=== PATIENT | female | born 1995 | race Caucasian/White ===

== ENCOUNTER 2025-06-01 22:01 | Emergency (ER) | payer OTHER ==
[~2025-06-01] VITALS: Ht 154.9 cm; Wt 74.3 kg
[2025-06-02 00:23] VITALS: PULSE 75; RESP 15; O2SAT 98
[2025-06-02 00:25] VITALS: BP 113/75; PULSE 75; RESP 15; TEMP 98.3; O2SAT 99
--- NOTE | 2025-06-02 00:28 | ED.PDOC ---
History of Present Illness(SKN HPI Comments PT CAME TO THE ER WITH CC OF WOUND CHECK, PT HAD BIOPSY DONE ON HER VULVA TODAY AT 1530, PT STATED THEY HAD A HARD TIME MAKING THE BLEEDING STOP, AFTER THEY GOT BLEEDING STOPPED PT WAS SENT HOME. PT STATED SHE WENT TO THE BATHROOM AT 2145 AND WHEN SHE PUSHED ON HER ABDOMIN A LARGE AMOUNT OF BLOOD CAME OUT OF THE WOUND. PT IS A&OX4, AMBULATORY, RR EVEN AND REGULAR NO DISTRESS NOTED, PT DENIES ALL OTHER SYMTPOMS AT THIS TIME Chief Complaint: Wound Check Time Seen by MD: 22:14 History of Present Illness: Nurses Notes, Medications, Allergies Information Source: Patient Mode of Arrival: Ambulatory All Other Systems: Reviewed and Negative (see hpi) Physical Exam General Appearance: No Apparent Distress, Normal HEENT: Pharynx Normal Neck: Full Range of Motion, Non-Tender Respiratory: Lungs Clear, No Respiratory Distress, Normal Breath Sounds Cardiovascular: No Edema, No JVD, No Murmur, No Gallop, Normal Peripheral Pulses, Regular Rate/Rhythm Breast Exam: Deferred Gastrointestinal: Diffuse (Tenderness), No Organomegaly, No Pulsatile Mass, Normal Bowel Sounds, Soft Genitalia: Deferred Pelvic: Other (Right labia scabbed over surgical incision biopsy no noted bleeding or drainage) Rectal: Deferred Extremities: Normal range of motion, No pedal edema Musculoskeletal : Apperance: Normal Neurologic: Alert, No Motor Deficits, Normal Affect, Normal Mood, No Sensory Deficits Cerebellar Function: Normal Reflexes: NOT DONE Skin: Dry, Normal Color, Warm Lymphatic: No Adenopathy Was a procedure done? Was a procedure done?: No X-Ray, Labs, Meds, VS Vital Signs Date Time Temp Pulse Resp B/P (MAP) Pulse Ox O2 Delivery O2 Flow Rate FiO2 06/02/25 00:25 98.3 75 15 113/75 (88) 99 98.3 06/02/25 00:23 75 15 98 Room Air* 0 21 06/01/25 22:04 98.0 89 16 121/97 97 98.0 X-Ray, Labs, Meds, VS Comment CT abdomen and pelvis shows no acute etiology. Labia surgical biopsy area without any bleeding or drainage. Advised patient to follow up with her OBGYN for pathology results on Thursday. Advised to follow up with her PCP two days. ER return precautions given patient indicates understanding agrees with discharge plan of care Images Reviewed?: Images reviewed and evaluated by me Time of 1ST Reevaluation: 22:14 Reevaluation 1ST: Unchanged Time of 2ND Reevaluation: 01:50 Reevaluation 2ND: Improved Patient Education/Counseling: Diagnosis, Treatment, Need For Follow Up Family Education/Counseling: No Family Present SEPSIS Sepsis Screen Date sepsis recognized/suspect: Jun 01, 2025 Time Sepsis recognized/suspect: 2209 Recent Procedure: No On Antibiotic Therapy: No Respiratory Rate >20: No Heart Rate >90: No Temp<36 C (96.8 F) or >38.3 C: No SBP <90 or MAP <65 mmHG: No New Acute Mental Status Change: No Is the patient on CPAP, BIPAP,: No Physician Orders Ct Ab Pel Wo Con-No Oral Or Iv (06/02/25 00:21) Vital Signs Date Time Temp Pulse Resp B/P (MAP) Pulse Ox O2 Delivery O2 Flow Rate FiO2 06/02/25 00:25 98.3 75 15 113/75 (88) 99 98.3 06/02/25 00:23 75 15 98 Room Air* 0 21 06/01/25 22:04 98.0 89 16 121/97 97 98.0 Departure 1 Departure Time of Disposition: 01:50 Impression: Primary Impression: Labial abrasion Qualified Codes: S30.814A - Abrasion of vagina and vulva, initial encounter Additional Impression: Abdominal pain Qualified Codes: R10.84 - Generalized abdominal pain Disposition: 01 HOME / SELF CARE / HOMELESS Condition: Stable Discharged With: Self Critical Care Note Critical Care Time?: No Stability Stability form required: COLT Verma Jun 02, 2025 00:28
--- NOTE | 2025-06-02 01:41 | DVH ---
Exam: CT CT AB PEL WO CON-NO ORAL OR IV History: MID ABD PAIN AND BULGING Comparison Study: None TECHNIQUE: Multidetector CT of the abdomen and pelvis was performed from lung bases to pubic symphysis. Imaging was performed without IV contrast. Axial, coronal, and sagittal multiplanar reformats were obtained from the axial data set by the technologist. RADIATION DOSE: CTDI vol 16.1 mGy. DLP 889.1 mGy.cm Findings: Limited evaluation of the solid organs in the absence of IV contrast. Lungs: The lung bases are clear. Liver: Unremarkable. Spleen: Unremarkable. Pancreas: Unremarkable. Gallbladder: Contracted in appearance. Adrenals: Unremarkable Kidneys: Unremarkable. Pelvic Viscera: 2.3 cm right adnexal cyst. Vasculature: Unremarkable. Retroperitoneum: Unremarkable. Bowel: No bowel obstruction. The appendix is normal. Musculoskeletal: Unremarkable. Soft tissues: Unremarkable Impression: 1. No acute abdominopelvic abnormality.
== END 2025-06-02 02:14 | disposition home or self-care (01) ==
LOC: ER 22:01
DX: S30.814A Abrasion of vagina and vulva, initial encounter (principal); R10.84 Generalized abdominal pain; X58.XXXA Exposure to other specified factors, initial encounter; Y93.89 Activity, other specified; Y92.89 Other specified places as the place of occurrence of the external cause; Y99.8 Other external cause status
CPT/HCPCS: 74176